=== PATIENT | male | born 1995 | race Caucasian/White ===

== ENCOUNTER 2017-11-25 16:29 | Emergency (ER) | payer BC ==
[2017-11-25] MEDS ORDERED: SKIN ADHESIVE (DERMABOND) 1 EACH TP ONE (18:05)
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
[2017-11-25 18:27] VITALS: BP 148/85
== END 2017-11-25 18:21 | disposition home or self-care (01) ==
PROC: 0HQ1XZZ Repair Face Skin, External Approach (ICD-10-PCS; principal; 2017-11-25)
DX: S01.81XA Laceration without foreign body of other part of head, initial encounter (principal); S09.90XA Unspecified injury of head, initial encounter; V19.9XXA Pedal cyclist (driver) (passenger) injured in unspecified traffic accident, initial encounter